=== PATIENT | female | born 1995 | race Caucasian/White ===

== ENCOUNTER 2023-05-01 13:00 | Inpatient (IN) | payer OTHER ==
[~2023-05-01] VITALS: Ht 162.6 cm; Wt 97.1 kg
[2023-05-06] MEDS ORDERED: LR 1,000 ML IV SCH ×2 (11:15→13:15)
[2023-05-06] MEDS ORDERED: CEFAZOLIN 2 GM IVPB PREMIX 50 ML IV ONE (11:15)
[2023-05-06 11:33] VITALS: BP_SYST 123; RESP 18; TEMP 98.7
[2023-05-06 11:44] LABS: BASOPHILS # (AUTO) 0.1 K/uL (0.0-0.2); BASOPHILS % (AUTO) 0.6 % (0.0-2.0); EOSINOPHILS # (AUTO) 0.1 K/uL (0.0-0.4); EOSINOPHILS % (AUTO) 1.4 % (0.0-4.0); HEMOGLOBIN 11.3 g/dL (12.0-16.0); LYMPHOCYTES # (AUTO) 1.8 K/uL (1.0-5.5); LYMPHOCYTES % (AUTO) 18.3 % (20.5-51.5); MEAN CORPUSCULAR HEMOGLOBIN 27 pg (27-31); MEAN CORPUSCULAR HGB CONC 32 % (32-36); MEAN CORPUSCULAR VOLUME 84 fL (79.0-98.0); MONOCYTES # (AUTO) 0.8 K/uL (0.0-1.0); MONOCYTES % (AUTO) 8.7 % (1.7-9.3); NEUTROPHILS # (AUTO) 6.9 K/uL (1.8-7.7); PLATELET COUNT (AUTO) 247 K/uL (130-430); RED BLOOD CELL COUNT(AUTO) 4.18 MIL/uL (4.2-6.2); RED CELL DISTRIBUTION WIDTH 15.5 % (9.0-15.0); WHITE BLOOD COUNT (AUTO) 9.7 K/uL (4.8-10.8)
[2023-05-06 11:46] LABS: BILIRUBIN,URINE NEGATIVE (NEGATIVE); BLOOD, URINE NEGATIVE (NEGATIVE); CLARITY/URINE CLEAR (CLEAR); COLOR,URINE YELLOW (YELLOW); GLUCOSE,URINE NEGATIVE (NEGATIVE); KETONES,URINE NEGATIVE (NEGATIVE); LEUKOCYTE ESTERASE ,URINE 1+ (NEGATIVE); NITRITE, URINE NEGATIVE (NEGATIVE); PH,URINE 7.5 (5.0-8.0); PROTEIN URINE NEGATIVE (NEGATIVE); UROBILINOGEN,URINE 0.2 (0.2-1.0)
[2023-05-06 12:33] LABS: BACTERIA,URINE RARE /HPF (None Seen)
[2023-05-06] MEDS ORDERED: BISACODYL 10 MG/SUPPOSITORY RC PRN (13:15)
[2023-05-06] MEDS ORDERED: LANOLIN 7 GM OINT. TP PRN (13:15)
[2023-05-06] MEDS ORDERED: ANUSOL 1 EA SUPP.RECT (PREPARATION H) RC PRN (13:15)
[2023-05-06] MEDS ORDERED: KETOROLAC TROMETHAMINE 30 MG VIAL IVP PRN (13:15)
[2023-05-06] MEDS ORDERED: OXYTOCIN/0.9 % SODIUM CHLORIDE 1,000 ML IV ONE (13:15)
[2023-05-06] MEDS ORDERED: DIPHENHYDRAMINE INJ 50 MG/ML VIAL IM PRN (14:00)
[2023-05-06] MEDS ORDERED: KETOROLAC TROMETHAMINE 60 MG/2 ML VIAL IM PRN (14:00)
[2023-05-06] MEDS ORDERED: ONDANSETRON HCL 4 MG/2 ML VIAL IVP PRN (14:00)
[2023-05-06 14:12] VITALS: BP_SYST 118
[2023-05-06] MEDS ORDERED: TEMAZEPAM 15 MG CAPSULE PO PRN (21:00)
[2023-05-06] MEDS ORDERED: SENNOSIDES/DOCUSATE SODIUM 1 TAB TABLET(SENOKOT-S) PO SCH (21:00)
[2023-05-07] MEDS: SIMETHICONE 80 MG TAB.CHEW PO PRN ×4 (06:34→19:50)
[2023-05-07 07:47] LABS: BASOPHILS % (AUTO) 0.2 % (0.0-2.0); EOSINOPHILS % (AUTO) 0.3 % (0.0-4.0); HEMATOCRIT 32.6 % (36-48); HEMOGLOBIN 10.6 g/dL (12.0-16.0); LYMPHOCYTES # (AUTO) 0.8 K/uL (1.0-5.5); LYMPHOCYTES % (AUTO) 6.1 % (20.5-51.5); MEAN CORPUSCULAR HEMOGLOBIN 27 pg (27-31); MEAN CORPUSCULAR HGB CONC 32 % (32-36); MEAN CORPUSCULAR VOLUME 83 fL (79.0-98.0); MONOCYTES # (AUTO) 0.7 K/uL (0.0-1.0); MONOCYTES % (AUTO) 4.9 % (1.7-9.3); NEUTROPHILS # (AUTO) 12.1 K/uL (1.8-7.7); NEUTROPHILS % (AUTO) 88.5 % (40.0-70.0); PLATELET COUNT (AUTO) 222 K/uL (130-430); RED BLOOD CELL COUNT(AUTO) 3.92 MIL/uL (4.2-6.2); RED CELL DISTRIBUTION WIDTH 15.4 % (9.0-15.0)
[2023-05-07 07:56] LABS: WHITE BLOOD COUNT (AUTO) 13.6 K/uL (4.8-10.8)
[2023-05-07] MEDS: OXYCODONE/ACETAMINOPHEN 5-325 TABLET PO PRN ×3 (08:20→22:07)
[2023-05-07] MEDS: DOCUSATE SODIUM 100 MG CAPSULE PO SCH ×2 (08:20→19:51)
[2023-05-07] MEDS ORDERED: fentaNYL CITRATE/PF 100 MCG/2 ML AMP ONE (13:00)
[2023-05-07] MEDS ORDERED: LR 1,000 ML IV.SOLN IV ONE (13:00)
[2023-05-07] MEDS ORDERED: NS IRRIG SOLN 1000 ML IR ONE (13:00)
[2023-05-07] MEDS ORDERED: MORPHINE SULFATE IV ONE (13:00)
[2023-05-07] MEDS: IBUPROFEN 800 MG TABLET PO PRN (13:24)
[2023-05-08] MEDS: OXYCODONE/ACETAMINOPHEN 5-325 TABLET PO PRN ×2 (04:51→12:46)
[2023-05-08] MEDS: SIMETHICONE 80 MG TAB.CHEW PO PRN (08:39)
[2023-05-08] MEDS: DOCUSATE SODIUM 100 MG CAPSULE PO SCH (08:40)
[2023-05-08] MEDS: IBUPROFEN 800 MG TABLET PO PRN (12:02)
[2023-05-08] MEDS ORDERED: DIPHTH,PERTUSS(ACELL),TET VAC 0.5 ML VIAL (Tdap) I.M. ONE (12:45)
== END 2023-05-08 13:12 | disposition home or self-care (01) | DRG 788 ==
LOC: SPU 05-06 10:40
PROVIDERS: ADMIT Obstetrics & Gynecology; ATTEND Obstetrics & Gynecology
PROC: 10D00Z1 Extraction of Products of Conception, Low, Open Approach (ICD-10-PCS; principal; 2023-05-06 13:14)
DX: O10.92 Unspecified pre-existing hypertension complicating childbirth (principal); Z3A.37 37 weeks gestation of pregnancy; Z37.0 Single live birth; Z91.012 Allergy to eggs; Z79.899 Other long term (current) drug therapy
CPT/HCPCS: 36415; 81000; 85025; 86592; 86886; 86900; 86901; 90715; 94760; J0690; J1885; J2270; J2590; J3010; J7120